=== PATIENT | male | born 1965 | race Caucasian/White ===

== ENCOUNTER 2021-01-17 22:14 | Emergency (ER) | payer MEDICAID ==
[~2021-01-17] VITALS: Ht 180.3 cm; Wt 81.6 kg
--- NOTE | 2021-01-17 22:15 | NUR ---
PATIENT BIBS FOR VOLUNTARY PSYCH ADMISSION, WITH SUICIDAL, STATES HE WANTS TO "JUMP OFF BRIDGE" BUT DENIES HOMICIDAL IDEATION. PT IS AAO X 4, IN NO SIGN OF ACUTE DISTRESS, BREATHING EVEN AND UNLABORED. PATIENT HERE FOR MEDICAL CLEARANCE.
[2021-01-17 23:06] LABS: BASOPHILS # (AUTO) 0.1 K/uL (0.0-0.2); EOSINOPHILS % (AUTO) 0.1 % (0.0-6.0); HEMOGLOBIN 17.5 g/dL (13.5-17.5); LYMPHOCYTES % (AUTO) 14.6 % (20.0-44.0); MONOCYTES # (AUTO) 1.4 K/uL (0.1-1.30); RED BLOOD CELL COUNT(AUTO) 5.44 MIL/uL (4.5-6.0)
[2021-01-17 23:09] LABS: BASOPHILS % (AUTO) 0.8 % (0.0-2.0); HEMATOCRIT 51 % (39-51); LYMPHOCYTES # (AUTO) 1.8 K/uL (0.8-4.8); MEAN CORPUSCULAR HGB CONC 34 g/dl (31.0-36.0); MEAN CORPUSCULAR VOLUME 94 fL (80-96); MONOCYTES % (AUTO) 11.5 % (2.0-12.0); NEUTROPHILS # (AUTO) 9.1 K/uL (1.8-8.9); PLATELET COUNT (AUTO) 189 K/uL (150-450); WHITE BLOOD COUNT (AUTO) 12.5 K/uL (4.3-11.0)
[2021-01-17 23:14] LABS: CALCIUM, SERUM 8.6 mg/dL (8.5-10.1); POTASSIUM 3.4 mmol/L (3.5-5.1)
--- NOTE | 2021-01-17 23:14 | NUR ---
CALLED CHRISTOPHER FARRELL (FATHER) [phone], NOTIFIED OF PT VISIT
[2021-01-17 23:20] LABS: ALBUMIN 3.8 g/dL (3.4-5.0); BILIRUBIN,DIRECT 0.3 mg/dL (0.0-0.2); TOTAL PROTEIN, SERUM 8.1 g/dL (6.4-8.2)
[2021-01-18 00:48] LABS: BILIRUBIN,URINE Negative (NEGATIVE); COLOR,URINE YELLOW (YELLOW); LEUKOCYTE ESTERASE ,URINE Negative (NEGATIVE); NITRITE, URINE Negative (NEGATIVE); PROTEIN,URINE Negative (NEGATIVE); UGLUCOSE Negative (NEGATIVE); UROBILINOGEN,URINE 0.2 EU/dL (0.2)
[2021-01-18 01:07] LABS: BACTERIA,URINE None seen /HPF (None Seen); MUCUS,URINE Few /LPF (None Seen); SQUAMOUS EPITHELIAL CELL,UR Few /HPF (None Seen); WBC,URINE 0-2 /HPF (0-3)
--- NOTE | 2021-01-18 05:03 | NUR ---
PT NO LONGER WISHES TO STAY IN ER. DENIES SI/HI. DR EVANS AWARE. PT LEFT ER .
[2021-01-18 06:07] VITALS: BP 151/85
== END 2021-01-18 06:08 | disposition home or self-care (01) ==
LOC: ER 22:16
DX: R45.851 Suicidal ideations (principal); F19.10 Other psychoactive substance abuse, uncomplicated; F10.129 Alcohol abuse with intoxication, unspecified; Y90.7 Blood alcohol level of 200-239 mg/100 ml; Z20.822 Contact with and (suspected) exposure to COVID-19
CPT/HCPCS: 36415; 80048; 80076; 80143; 80307; 80320; 81001; 85025; 87426; 99285; C9803; G0480

== ENCOUNTER 2021-01-22 11:06 | Inpatient (IN) | payer MEDICAID ==
[~2021-01-22] VITALS: Ht 180.3 cm; Wt 96.2 kg
[2021-01-22] MEDS ORDERED: IV NS 0.9% 1,000 ML BAG IV ONE ×2 (11:30→13:30)
[2021-01-22 11:48] LABS: BASOPHILS % (AUTO) 0.2 % (0.0-2.0); EOSINOPHILS % (AUTO) 0.1 % (0.0-6.0); HEMATOCRIT 48 % (39-51); HEMOGLOBIN 16.3 g/dL (13.5-17.5); LYMPHOCYTES # (AUTO) 0.6 K/uL (0.8-4.8); MEAN CORPUSCULAR HGB CONC 34 g/dl (31.0-36.0); MEAN CORPUSCULAR VOLUME 95 fL (80-96); MONOCYTES # (AUTO) 1.5 K/uL (0.1-1.30); MONOCYTES % (AUTO) 10.8 % (2.0-12.0); NEUTROPHILS # (AUTO) 12.2 K/uL (1.8-8.9); NEUTROPHILS % (AUTO) 84.9 % (43.0-81.0); PLATELET COUNT (AUTO) 159 K/uL (150-450); RED BLOOD CELL COUNT(AUTO) 5.08 MIL/uL (4.5-6.0); WHITE BLOOD COUNT (AUTO) 14.4 K/uL (4.3-11.0)
--- NOTE | 2021-01-22 11:50 | NUR ---
ETOH WITHDRAWAL, 1/2 BOTTLE OF VODKA THIS AM PER PT. PT AAOX3, RR EVEN & UNLABORED. DENIES CP, SOB, N/V AT THIS TIME. PT SEEN & EVAL'D BY DR. BRAY. PLACED ON DIRECTOR GLOBAL STRATEGIC PUBLISHER SALES, ST. WILL CONT TO MONITOR.
[2021-01-22] MEDS ORDERED: CHLORDIAZEPOXIDE HCL 25 MG CAPSULE ONE (11:55)
[2021-01-22 11:59] LABS: CALCIUM, SERUM 8.8 mg/dL (8.5-10.1); CARBON DIOXIDE 17 mmol/L (21-32); CHLORIDE 104 mmol/L (98-107); CREATININE 0.9 mg/dL (0.6-1.3); GLUCOSE 130 mg/dL (74-106); POTASSIUM 3.2 mmol/L (3.5-5.1); SODIUM SERUM 142 mmol/L (136-145); UREA NITROGEN, BLOOD 16 mg/dL (7-18)
[2021-01-22] MEDS ORDERED: CHLORDIAZEPOXIDE HCL 25 MG CAPSULE PO ONE (12:00)
[2021-01-22 12:21] LABS: ALANINE AMINOTRANSFERASE 63 U/L (12-78); ALBUMIN 3.2 g/dL (3.4-5.0); ALCOHOL, BLOOD 32 mg/dL (0-0); ALKALINE PHOSPHATASE 98 U/L (46-116); BILIRUBIN,DIRECT 0.6 mg/dL (0.0-0.2); BILIRUBIN,TOTAL 1.8 mg/dL (0.2-1.0); TOTAL PROTEIN, SERUM 7.6 g/dL (6.4-8.2)
[2021-01-22 12:23] LABS: ACETAMINOPHEN 0 ug/ml (10-30)
[2021-01-22 12:35] LABS: ASPARTATE AMINOTRANSFERASE 38 U/L (15-37)
[2021-01-22] MEDS ORDERED: LORAZEPAM INJ 2 MG/ML VIAL IV ONE (13:30)
--- NOTE | 2021-01-22 13:32 | NUR ---
MOVE SHEET SUBMITTED AND CALLED FOR TELE BED.
--- NOTE | 2021-01-22 14:12 | NUR ---
PT ACCEPTED TO TELE BED 105
[2021-01-22] MEDS ORDERED: LORAZEPAM INJ 2 MG/ML VIAL ONE (14:16)
[2021-01-22] MEDS ORDERED: ACETAMINOPHEN 325 MG TABLET PO PRN (14:30)
[2021-01-22] MEDS ORDERED: MAGNESIUM HYDROXIDE 30 ML UDC PO PRN (14:30)
[2021-01-22] MEDS ORDERED: Z GUARD REMEDY 2 OZ OINT TP PRN (14:30)
[2021-01-22] MEDS: IV NS 0.9% 1,000 ML IV SCH (14:30)
[2021-01-22] MEDS ORDERED: ONDANSETRON HCL/PF 4 MG/2 ML VIAL IVP PRN (14:30)
[2021-01-22] MEDS ORDERED: POTASSIUM CHLORIDE 20 MEQ TAB.PRT.SR PO ONE ×2 (14:30→14:38)
[2021-01-22] MEDS ORDERED: MAG HYDROX/AL HYDROX/SIMETH 30 ML UDC PO PRN (14:30)
--- NOTE | 2021-01-22 15:00 | NUR ---
report given to Mg LLAMAS for leo.
--- NOTE | 2021-01-22 15:07 | NUR ---
covid swab collected and sent to lab.
--- NOTE | 2021-01-22 15:22 | NUR ---
wheeled patient via gurney accompanied by RN and emt in no distress. RN assigned to patient at bedside to assume care.
--- NOTE | 2021-01-22 15:30 | NUR ---
RN NOTES PT RECEIVED FROM ER BY DEVYN. PT STABLE. PT TRANSFERRED FROM BED TO [facility] TO BED AMBULATING WITHOUT ASSIST. BODY CHECK DONE. SKIN INTACT. PT PUT ON TELE MONITOR NO COMPLAINTS OF PAIN AT THIS TIME. ADMIT PT TO TELE UNIT. BED WHEELS LOCKED. PT WEIGHED. SAFETY MEASURES PLACED. CALL LIGHT WITHIN REACH. WILL CONTINUE WITH ADMISSION
[2021-01-22 16:00] VITALS: BP 136/79
[2021-01-22] MEDS: LORAZEPAM INJ 2 MG/ML VIAL IV PRN ×2 (17:02→23:07)
--- NOTE | 2021-01-22 18:41 | NUR ---
RN CLOSING NOTES PT IS IN ROOM STABLE.. ON RA UNLABORE BREATHING. PT ON TELE WITH HR 103 TACHY RHYTHM, PT IS HOMELESS AN A/O X4. PT IS AMBLE TO AMBULATE/ BPR. SKIN INTACT. PT DOES NOT WANT HIS ABDOMEN AREA ASSESSED. COVID PCR PENDING.
--- NOTE | 2021-01-22 19:26 | NUR ---
RN NOTE PATIENT RESTING IN BED, ALERT AND ORIENTED X4, ABLE TO MAKE NEEDS KNOWN. ON ROOM AIR, RESPIRATIONS EVEN AND UNLABORED. DENIES ANY PAIN OR DISCOMFORT AT THIS TIME. IV ACCESS RIGHT AC #20 PATENT AND INTACT RUNNING IV NS @ 100ML/HR, NO S/SX OF INFILTRATION. BED LOCKED AND IN LOWEST POSITION. ALL SAFETY MEASURES IN PLACE. CALL LIGHT WITHIN REACH. ALL NEEDS ANTICIPATED.
[2021-01-22 20:00] VITALS: BP 104/52
[2021-01-23] VITALS: BP 105/70
[2021-01-23] MEDS: IV NS 0.9% 1,000 ML IV SCH ×3 (01:07→20:37)
[2021-01-23 04:00] VITALS: BP 113/69
[2021-01-23 06:11] LABS: BASOPHILS % (AUTO) 0.5 % (0.0-2.0); EOSINOPHILS % (AUTO) 0.7 % (0.0-6.0); HEMATOCRIT 42 % (39-51); HEMOGLOBIN 14.1 g/dL (13.5-17.5); LYMPHOCYTES # (AUTO) 1.1 K/uL (0.8-4.8); LYMPHOCYTES % (AUTO) 15.7 % (20.0-44.0); MEAN CORPUSCULAR HGB CONC 34 g/dl (31.0-36.0); MEAN CORPUSCULAR VOLUME 95 fL (80-96); MONOCYTES % (AUTO) 13.9 % (2.0-12.0); NEUTROPHILS # (AUTO) 4.8 K/uL (1.8-8.9); NEUTROPHILS % (AUTO) 69.2 % (43.0-81.0); PLATELET COUNT (AUTO) 134 K/uL (150-450); RED BLOOD CELL COUNT(AUTO) 4.39 MIL/uL (4.5-6.0); WHITE BLOOD COUNT (AUTO) 6.9 K/uL (4.3-11.0)
[2021-01-23 06:21] LABS: CREATININE 0.7 mg/dL (0.6-1.3); POTASSIUM 3.3 mmol/L (3.5-5.1)
--- NOTE | 2021-01-23 06:57 | NUR ---
RN NOTE PATIENT ALERT AND ORIENTED X4. ON ROOM AIR, O2 SAT 96%. DENIES ANY PAIN OR DISCOMFORT AT THIS TIME. IV ACCESS RIGHT AC #20 PATENT AND INTACT RUNNING IV NS @ 100ML/HR, NO S/SX OF INFILTRATION. ALL NEEDS ATENDED PROMPTLY. BED LOCKED AND IN LOWEST POSITION. ALL SAFETY MEASURES IN PLACE. CALL LIGHT WITHIN REACH. WILL ENDORSE TO AM SHIFT.
--- NOTE | 2021-01-23 07:30 | NUR ---
HOUSE ADMIN AM NOTE PATIENT IN BED, ASLEEP, RESPONDS TO NAME AND TOUCH, ALERT AND ORIENTED X4, ABLE TO MAKE NEEDS KNOWN. O2 SAT AT 96% ON ROOM AIR, RESPIRATIONS EVEN AND UNLABORED. SINUS RHYTHM HR 82 ON MONITOR, DENIES ANY PAIN OR DISCOMFORT AT THIS TIME. IV ACCESS RIGHT AC #20 WITH NS @ 100ML/HR INFUSING WELL, SITE CLEAR. NO SKIN ISSUES. PATIENT REFUSED TO CHANGE INTO HOSPITAL GOWN NOR REMOVED HIS SHOES, UNABLE TO DO FULL BODY ASSESSMENT. BED LOCKED AND IN LOWEST POSITION. ALL SAFETY MEASURES IN PLACE. CALL LIGHT WITHIN REACH. ALL NEEDS ANTICIPATED. WILL CONTINUE TO MONITOR.
[2021-01-23 08:00] VITALS: BP 101/59
[2021-01-23] MEDS: PANTOPRAZOLE 40 MG TABLET.DR PO SCH (08:14)
[2021-01-23] MEDS: MULTIVITAMINS,THERAGRAN 1 UDTAB TABLET PO SCH (09:01)
[2021-01-23] MEDS: THIAMINE HCL 100 MG TABLET PO SCH (09:01)
[2021-01-23] MEDS: FOLIC ACID 1 MG TABLET PO SCH (09:01)
[2021-01-23] MEDS: POTASSIUM PHOSPHATE MM 7.5 MMOL in IV NS 0.9% 100 ML IV SCH ×2 (09:02→11:48)
--- NOTE | 2021-01-23 09:30 | NUR ---
RN NOTES DUE MEDS GIVEN
[2021-01-23] MEDS ORDERED: CHLORDIAZEPOXIDE HCL 10 MG CAPSULE PO SCH (11:00)
[2021-01-23 12:00] VITALS: BP 131/74
[2021-01-23] MEDS: LORAZEPAM INJ 2 MG/ML VIAL IV PRN ×2 (14:32→14:58)
--- NOTE | 2021-01-23 14:34 | NUR ---
RN NOTES INFORMED [facility], PHARMACY REGARDING ATIVAN ADMINISTERED EARLIER AT 0900 SCANNED BUT DID NOT GOT SAVED.
[2021-01-23 16:00] VITALS: BP 127/73
[2021-01-23] MEDS: CHLORDIAZEPOXIDE HCL 5 MG CAPSULE PO SCH (16:27)
[2021-01-23] MEDS: QUETIAPINE FUMARATE 25 MG TABLET PO SCH (16:27)
--- NOTE | 2021-01-23 19:02 | NUR ---
RN CLOSING NOTES PT IS IN ROOM STABLE.. ON RA UNLABORED BREATHING. PT ON TELE WITH HR 90 SINUS RHYTHM, PT IS HOMELESS AN A/O X4. PT IS ABLE TO AMBULATE/ BPR. SKIN INTACT. REFUSE TO CHANGE TO HOSPITAL GOWN. ALL NEEDS MET AT THIS TIME. WILL ENDORSE TO NEXT SHIFT FOR VICKI.
--- NOTE | 2021-01-23 19:10 | NUR ---
RN NOTE RECEIVED PATIENT IN BED RESTING ALERT ORIENTED X3 VERBALLY RESPONSIVE ON ROOM AIR O2:98% IV SITE IS ON RIGHT HAND INTACT PATENT ON IV HYDRATION NS 0.9% 100CC/HR AMBULATORY IN CONTINET BOWEL/BLADDER,SAFETY MEASURE IMPLEMENT CALL LIGHT WITHIN REACH,BED IN LOW POSITION AND LOCKED CONTINUE TO MONITOR.
[2021-01-23 20:00] VITALS: BP 116/83
[2021-01-23] MEDS: MIRTAZAPINE 15 MG TABLET PO SCH (21:05)
[2021-01-24] VITALS (7 sets, daily range): BP systolic 99–132; BP diastolic 61–80
[2021-01-24] MEDS: LORAZEPAM INJ 2 MG/ML VIAL IV PRN ×3 (04:17→20:35)
[2021-01-24] MEDS: IV NS 0.9% 1,000 ML IV SCH ×2 (06:15→15:34)
--- NOTE | 2021-01-24 07:00 | NUR ---
RN NOTE PATIENT REMAINS ON ALERT ORIENTED X3 VERBALLY RESPONSIVE ON ROOM AIR O2:98% IV SITE IS ON RIGHT HAND,RIGHT FOREARM INTACT PATENT ON IV HYDRATION NS 0.9% 100CC/HR,ALL DUE MEDS GIVEN MD ORDERED KEEP CLEAN AND DRY ALL THE TIME ALL NEEDS MET ENDORSE NEXT COMING SHIFT FOR CONTINUATION OF CARE
--- NOTE | 2021-01-24 07:30 | NUR ---
SEMICONDUCTOR WAFER INSPECTOR AM NOTE PATIENT IN BED, ASLEEP, RESPONDS TO NAME AND TOUCH, ALERT AND ORIENTED X4, ABLE TO MAKE NEEDS KNOWN. O2 SAT AT 96% ON ROOM AIR, RESPIRATIONS EVEN AND UNLABORED. SINUS RHYTHM HR 80 ON MONITOR, DENIES ANY PAIN OR DISCOMFORT AT THIS TIME. IV ACCESS RIGHT AC #20 WITH NS @ 100ML/HR INFUSING WELL, SITE CLEAR. NO SKIN ISSUES. PATIENT REFUSED TO CHANGE INTO HOSPITAL GOWN NOR REMOVED HIS SHOES, UNABLE TO DO FULL BODY ASSESSMENT. BED LOCKED AND IN LOWEST POSITION. ALL SAFETY MEASURES IN PLACE. CALL LIGHT WITHIN REACH. ALL NEEDS ANTICIPATED. WILL CONTINUE TO MONITOR.
--- NOTE | 2021-01-24 07:40 | NUR ---
RN NOTES DC TELEMETRY PER DR. VERA
[2021-01-24] MEDS: PANTOPRAZOLE 40 MG TABLET.DR PO SCH (08:07)
[2021-01-24] MEDS: FOLIC ACID 1 MG TABLET PO SCH (08:22)
[2021-01-24] MEDS: CHLORDIAZEPOXIDE HCL 5 MG CAPSULE PO SCH ×2 (08:22→16:05)
[2021-01-24] MEDS: THIAMINE HCL 100 MG TABLET PO SCH (08:22)
[2021-01-24] MEDS: QUETIAPINE FUMARATE 25 MG TABLET PO SCH ×2 (08:22→16:05)
[2021-01-24] MEDS: MULTIVITAMINS,THERAGRAN 1 UDTAB TABLET PO SCH (08:22)
[2021-01-24 09:11] LABS: BASOPHILS % (AUTO) 0.6 % (0.0-2.0); EOSINOPHILS % (AUTO) 1.2 % (0.0-6.0); HEMATOCRIT 40 % (39-51); HEMOGLOBIN 13.9 g/dL (13.5-17.5); LYMPHOCYTES # (AUTO) 1.3 K/uL (0.8-4.8); LYMPHOCYTES % (AUTO) 22.8 % (20.0-44.0); MEAN CORPUSCULAR HGB CONC 34 g/dl (31.0-36.0); MEAN CORPUSCULAR VOLUME 95 fL (80-96); MONOCYTES # (AUTO) 0.9 K/uL (0.1-1.30); MONOCYTES % (AUTO) 15.2 % (2.0-12.0); NEUTROPHILS # (AUTO) 3.4 K/uL (1.8-8.9); NEUTROPHILS % (AUTO) 60.2 % (43.0-81.0); PLATELET COUNT (AUTO) 140 K/uL (150-450); RED BLOOD CELL COUNT(AUTO) 4.25 MIL/uL (4.5-6.0); WHITE BLOOD COUNT (AUTO) 5.7 K/uL (4.3-11.0)
[2021-01-24 09:26] LABS: ALBUMIN 2.3 g/dL (3.4-5.0); BILIRUBIN,DIRECT 0.3 mg/dL (0.0-0.2); BILIRUBIN,TOTAL 0.8 mg/dL (0.2-1.0); CREATININE 0.6 mg/dL (0.6-1.3); PHOSPHORUS 2.7 mg/dL (2.5-4.9); POTASSIUM 3.2 mmol/L (3.5-5.1); TOTAL PROTEIN, SERUM 5.3 g/dL (6.4-8.2)
--- NOTE | 2021-01-24 09:30 | NUR ---
RN NOTES DUE MEDS GIVEN
[2021-01-24 11:14] LABS: LYMPHOCYTES % (MANUAL) 20 % (16-48); MONOCYTES % (MANUAL) 15 % (0-11.0); NEUTROPHILS % (MANUAL) 65 (42-76)
--- NOTE | 2021-01-24 14:30 | NUR ---
SS consult SS consult requested for homelessness. Pt is a 55-year-old, male. SW met with pt at his bedside in the med-surg unit. Pt was alert and oriented x4. Pt's behavior was cooperative. Pt presented with an anxious mood and flat affect. Pt appeared appropriately dressed and groomed. Per chart, pt presented to the hospital on 01/22/21 for ETOH withdrawal. Pt stated that he is currently homeless and has been homeless for the last 2 weeks. Pt has some support from his parents, mother, Emi [[phone]] and father, Chester [[phone]]. Pt stated that his parents provide the pt with some extra clothing or some money if needed. Pt has been living on the [address]. Pt stated that he is ambulatory. Pt receives [employer] as a source of income. Pt reported that he has a hx of alcohol abuse and stated that his last alcohol use was on 01/22/21/. Pt reported daily alcohol use and stated he drinks "1.75 L a day." Pt reported no hx of mental illness. Pt reported no current SI/HI. Pt stated that he was having intermittent SI prior to admission. SW asked pt if he would consider voluntary psychiatric admission for his intermittent SI, and pt declined. SW offered the pt substance use, mental health and homeless resources. Pt accepted the resources and thanked ESTIVEN. Pt signed the homeless waiver and SW filed the waiver in the pt's chart. ESTIVEN discussed D/C plans with the pt. Pt plans to return to his prior living arrangement on the street or locate a treatment center for alcohol use. SW will f/u and fax clinicals for possible treatment center placement. PLAN: Pt plans to be D/C back to prior living arrangement on the street or to a treatment center for alcohol use, if accepted. SW will fax referral to treatment center and continue to remain available as needed. RESOURCES: Year-round shelters: [facility] [address] [place] [address] ; [facility] [address] [place] [address]; [facility] [id number] [facility]. [facility] [address] SPA 4 | [facility] Provider: [facility] Serve Address: [address] [place] [address], [address] # of Beds: 48 Population Served: [facility] Provider: First to Serve Address: [address] [facility], [address] # of Beds: 73 Population Served: [facility] SPA 6 | [facility] Provider: [facility] Last Address: [address] [facility], [address] # of Beds: 63 Population Served: [facility] 3 | [facility] Provider: [facility] [place] Address: [address] [facility], [address] # of Beds: 75 Population Served: [facility] 8 | [facility] Provider: [facility] [place] Address: [address] [facility] [address] # of Beds: 80 Population Served: [facility] 1 | [facility] Provider: [facility] [place] Address: [address] [place] [address], [address] # of Beds: 85 Population Served: [facility] | [facility] Provider: [facility] Address: Confidential (please call for location) # of Beds: 52 Population Served: [facility] 4 | [facility] Provider: [facility] Address: [address] [facility], [address] # of Beds: 49 Population Served: [facility] Provider: First To Serve Address: [address] [facility], [address] # of Beds: 27 Population Served: [facility] Hygiene: [facility]: [address] [address] ; [facility] [address] [facility] ; [facility] [address] . Food Resources: [place] [facility] at [facility]- [address]. [place]; Meet Each Need with [facility] ([facility]) [address] [place]; [facility] [address] [facility]; [facility] [address] [place] [address]. Mental Health resources provided: [facility] [address] [place], [place] [id number] ; [facility] [address] [facility] [address], [place], [place] [id number] ; [facility] [address] [facility] [place], [place] [phone] ; [facility] [address] [place], [place] [address] Healthcare Clinics: [facility] [address] [facility], [address] [place]. [place] ; [facility] [address] [facility] [address] [place] [address]; [facility] [address] [facility]. [place] [phone] Counseling--Outpatient [facility] [address] [facility], [address] [place], [place] [address] (Specializes in in-depth psychotherapy for emotional distress: anxiety, depression, interpersonal conflicts, life transitions, childhood abuse) PSYCHIATRIC OUTPATIENT SERVICES [facility] Partial Hospitalization and Intensive Outpatient Program (Managed Care and [place] Only) [address] [facility] [address] [facility] Partial Hospitalization and Outpatient Program [address] [place], [place] [id number] [facility] [place] Partial Hospitalization and Outpatient Program [address] [place], [place] [phone] [facility] [address] [facility]. [address] [place], [place] [address] [facility] Partial Hospitalization and Outpatient Program [address] [facility] [place], [place] [phone]
--- NOTE | 2021-01-24 14:50 | NUR ---
SS note SW faxed clinicals to [facility] [[address] [place] [address]; ph: [phone] fax: [phone]], for review. Pt requested treatment center placement. SS will continue to f/u. PLAN: Pt plans to D/C to his prior living arrangement on the [facility] for alcohol use, if accepted.
--- NOTE | 2021-01-24 19:30 | NUR ---
RN NOTE RECEIVED PT AWAKE, AOX3. NOT IN ANY DISTRESS, ON ROOM AIR. DENIES ANY SOB OR PAIN AT THIS TIME. PT ON IVFLUIDS NS AT 100ML/HR. NO SIGNS OF INFILTRATION NOTED. ALL SAFETY MEASURES IN PLACE. WILL CONTINUE TO MONITOR.
--- NOTE | 2021-01-24 19:53 | NUR ---
RN NOTE PT GOING TO RM 309. REPORT GIVEN TO
--- NOTE | 2021-01-24 20:53 | NUR ---
OPENING NOTES RECEIVED PT AWAKE, AOX3. NOT IN ANY DISTRESS, ON ROOM AIR. DENIES ANY SOB OR PAIN AT THIS TIME. PT ON IV FLUIDS NS AT 100ML/HR. NO SIGNS OF INFILTRATION NOTED. ALL SAFETY MEASURES IN PLACE. WILL CONTINUE TO MONITOR. Addendum: 01/24/21 at 2121 by AUDREY ARCE RN PT DOES NOT WANT TO BE CONNECTED TO IV FLUIDS AT THIS TIME.
--- NOTE | 2021-01-24 21:00 | NUR ---
RN NOTES PT REQUESTED ATIVAN ATIVAN GIVEN WILL CONTINUE TO MONITOR.
[2021-01-24] MEDS: MIRTAZAPINE 15 MG TABLET PO SCH (21:18)
--- NOTE | 2021-01-24 21:24 | NUR ---
RN NOTES PTS K IS 3.2 REPORTED TO PAPERBOARD BOXES ESTIMATOR DOCTOR AWAITING FOR RESPONSE. WILL CONTINUE TO MONITOR.
[2021-01-24] MEDS ORDERED: POTASSIUM CHLORIDE 20 MEQ TAB.PRT.SR PO ONE (22:00)
[2021-01-25] MEDS: IV NS 0.9% 1,000 ML IV SCH ×2 (02:30→12:45)
--- NOTE | 2021-01-25 06:43 | NUR ---
RN CLOSING NOTES PT AWAKE, AOX3. NOT IN ANY DISTRESS, ON ROOM AIR. DENIES ANY SOB OR PAIN AT THIS TIME. ALL SAFETY MEASURES IN PLACE. WILL ENDORSE CARE TO DAY SHIFT NURSE.
[2021-01-25 06:53] LABS: BASOPHILS % (AUTO) 0.5 % (0.0-2.0); EOSINOPHILS % (AUTO) 1.3 % (0.0-6.0); HEMATOCRIT 40 % (39-51); LYMPHOCYTES # (AUTO) 1.2 K/uL (0.8-4.8); MEAN CORPUSCULAR HGB CONC 35 g/dl (31.0-36.0); MEAN CORPUSCULAR VOLUME 95 fL (80-96); MONOCYTES # (AUTO) 0.9 K/uL (0.1-1.30); MONOCYTES % (AUTO) 15.8 % (2.0-12.0); NEUTROPHILS # (AUTO) 3.6 K/uL (1.8-8.9); NEUTROPHILS % (AUTO) 61.4 % (43.0-81.0); PLATELET COUNT (AUTO) 163 K/uL (150-450); RED BLOOD CELL COUNT(AUTO) 4.19 MIL/uL (4.5-6.0); WHITE BLOOD COUNT (AUTO) 5.9 K/uL (4.3-11.0)
[2021-01-25 07:15] LABS: CALCIUM, SERUM 8.4 mg/dL (8.5-10.1); CREATININE 0.6 mg/dL (0.6-1.3); POTASSIUM 3.3 mmol/L (3.5-5.1)
[2021-01-25] MEDS ORDERED: POTASSIUM CHLORIDE 20 MEQ TAB.PRT.SR PO ONE (07:30)
[2021-01-25] MEDS: LORAZEPAM INJ 2 MG/ML VIAL IV PRN ×3 (07:43→20:36)
[2021-01-25] MEDS: PANTOPRAZOLE 40 MG TABLET.DR PO SCH (07:44)
--- NOTE | 2021-01-25 07:51 | NUR ---
MS RN OPENING NOTES RECEIVED PT AWAKE IN BED IN NO ACUTE SIGNS FO DISTRESS. HOB ELEVATED. A/0 X3-4. ABLE TO MAKE NEEDS KNOWN, HANDS WERE LITTLE SHAKY, DR HERMAN ON UNIT AND AWARE, PRN ATIVAN 1MG IVP ADMINISTERED ORDERED. ON ROOM AIR, TOLERATING WELL WITH NO SOB NOTED. IV ACCESS ON RIGHT FA 22G AND RIGHT HAND 20G BOTH INTACT AND PATENT. SAFETY MEASURES IN PLACED: CALL LIGHT WITHIN REACH. BED ON LOWEST AND LOCKED POSITION WITH SIDE RAILS UP X2. WILL CONTINUE TO MONITOR PT ACCORDINGLY.
[2021-01-25 08:00] VITALS: BP 132/86
[2021-01-25] MEDS: CHLORDIAZEPOXIDE HCL 5 MG CAPSULE PO SCH ×2 (08:07→16:28)
[2021-01-25] MEDS: FOLIC ACID 1 MG TABLET PO SCH (08:08)
[2021-01-25] MEDS: MULTIVITAMINS,THERAGRAN 1 UDTAB TABLET PO SCH (08:08)
[2021-01-25] MEDS: THIAMINE HCL 100 MG TABLET PO SCH (08:08)
[2021-01-25] MEDS: QUETIAPINE FUMARATE 25 MG TABLET PO SCH ×2 (08:08→16:29)
--- NOTE | 2021-01-25 14:35 | NUR ---
RN NOTES PT REPORTED THAT HE'S A BIT ANXIOUS AND SHAKY. HE REQUESTED FOR MEDICATION TO CALM HIM DOWN. PRN ATIVAN 1MG IVP ADMINISTERED AT 1433. WILL CONTINUE TO MONITOR AND REASSESS PT.
[2021-01-25 16:00] VITALS: BP 138/85
--- NOTE | 2021-01-25 18:34 | NUR ---
MS RN CLOSING NOTES PT IN BED WATCHING TV AT THIS TIME. A/0 X3-4. ABLE TO MAKE NEEDS KNOWN. ON ROOM AIR, TOLERATING WELL WITH NO SOB NOTED DURING THE DAY. IV ACCESS ON RIGHT FA #22G AND RIGHT HAND #20G BOTH INTACT AND PATENT, IVF OF NS @ 100ML/HR INFUSING TO RFA, NO S/S OF INFILTRATION AT SITE NOTED. ALL NEEDS AND CARE ATTENDED WELL. SAFETY MEASURES IN PLACE: CALL LIGHT WITHIN REACH. BED ON LOWEST AND LOCKED POSITION WITH SIDE RAILS UP X2. WILL ENDORSE VICKI TO CARDIAC MONITOR TECHNICIAN NURSE.
--- NOTE | 2021-01-25 19:46 | NUR ---
MS RN OPENING NOTES RECEIVED PT IN BED, AWAKE, WATCHING TV. PT IS A/Ox3-4. PT IS ON ROOM AIR AND TOLERATING WELL. NO SOB NOTED. NO S/SX OF RESPIRATORY DISTRESS NOTED. IV ACCESS IS IN R HAND #20 AND R FA #22. BOTH IVs PATENT, INTACT, AND FLUSHING WELL WITH NS RUNNING @ 100 ML/HR ON RFA. SAFETY MEASURES IN PLACE: BED IN LOWEST, LOCKED POSITION, BRAKES ON, SIDERAILS UPx2. CALL LIGHT AND TABLE WITHIN REACH. WILL CONTINUE TO MONITOR.
[2021-01-25 20:00] VITALS: BP 122/67
--- NOTE | 2021-01-25 20:36 | NUR ---
ADMINISTERED ATIVAN, PER MD ORDER. VITAL SIGNS STABLE.
[2021-01-25] MEDS: MIRTAZAPINE 15 MG TABLET PO SCH (21:32)
[2021-01-26] MEDS: IV NS 0.9% 1,000 ML IV SCH ×2 (00:31→08:12)
--- NOTE | 2021-01-26 06:31 | NUR ---
MS RN CLOSING NOTES PT IN BED SLEEPING, EASY TO AWAKEN VIA VERBAL STIMULI. PT IS A/Ox3-4. PT IS ON ROOM AIR AND TOLERATING WELL. NO SOB NOTED. NO S/SX OF RESPIRATORY DISTRESS NOTED. IV ACCESS IS IN R HAND #20 AND R FA #22. BOTH IVs PATENT, INTACT, AND FLUSHING WELL WITH NS RUNNING @ 100 ML/HR ON RFA. ALL NEEDS MET. PT KEPT CLEAN AND DRY. SAFETY MEASURES IN PLACE: BED IN LOWEST, LOCKED POSITION, BRAKES ON, SIDERAILS UPx2. CALL LIGHT AND TABLE WITHIN REACH. WILL ENDORSE TO ONCOMING SHIFT.
[2021-01-26 06:36] LABS: BASOPHILS % (AUTO) 0.4 % (0.0-2.0); CALCIUM, SERUM 8.4 mg/dL (8.5-10.1); CREATININE 0.6 mg/dL (0.6-1.3); EOSINOPHILS % (AUTO) 1.1 % (0.0-6.0); HEMATOCRIT 40 % (39-51); HEMOGLOBIN 13.8 g/dL (13.5-17.5); LYMPHOCYTES # (AUTO) 1.3 K/uL (0.8-4.8); LYMPHOCYTES % (AUTO) 17.6 % (20.0-44.0); MEAN CORPUSCULAR HGB CONC 35 g/dl (31.0-36.0); MEAN CORPUSCULAR VOLUME 95 fL (80-96); MONOCYTES % (AUTO) 13.2 % (2.0-12.0); NEUTROPHILS # (AUTO) 4.9 K/uL (1.8-8.9); NEUTROPHILS % (AUTO) 67.7 % (43.0-81.0); PLATELET COUNT (AUTO) 175 K/uL (150-450); POTASSIUM 3.2 mmol/L (3.5-5.1); RED BLOOD CELL COUNT(AUTO) 4.18 MIL/uL (4.5-6.0); WHITE BLOOD COUNT (AUTO) 7.2 K/uL (4.3-11.0)
--- NOTE | 2021-01-26 07:25 | NUR ---
MS RN OPENING NOTES RECEIVED PT ASLEEP IN BED, EASILY AROUSABLE. PT IS A/0 X 4. ABLE TO MAKE NEEDS KNOWN, DENIES PAIN OR ANY DISCOMFORTS AT THIS TIME. ON ROOM AIR, TOLERATING WELL WITH NO SOB NOTED. IV ACCESS ON RIGHT FA #22G AND RIGHT HAND #20G BOTH INTACT AND PATENT,IVF OF NS @100ML/HR INFUSING WELL. SAFETY MEASURES IN PLACE: CALL LIGHT WITHIN REACH. BED ON LOWEST AND LOCKED POSITION WITH SIDE RAILS UP X2. WILL CONTINUE TO MONITOR PT ACCORDINGLY.
[2021-01-26] MEDS ORDERED: Thiamine HCL PO (07:26)
[2021-01-26] MEDS ORDERED: QUET25TA PO (07:26)
[2021-01-26] MEDS ORDERED: Chlordiazepoxide Hcl PO (07:26)
[2021-01-26] MEDS ORDERED: MULT-24 PO (07:26)
[2021-01-26] MEDS ORDERED: MIRT-121 PO (07:26)
[2021-01-26] MEDS ORDERED: Folic Acid PO (07:26)
[2021-01-26 08:00] VITALS: BP 117/71
[2021-01-26] MEDS ORDERED: POTASSIUM CHLORIDE 20 MEQ TAB.PRT.SR PO ONE (08:00)
[2021-01-26] MEDS: CHLORDIAZEPOXIDE HCL 5 MG CAPSULE PO SCH (08:11)
[2021-01-26] MEDS: PANTOPRAZOLE 40 MG TABLET.DR PO SCH (08:11)
[2021-01-26] MEDS: QUETIAPINE FUMARATE 25 MG TABLET PO SCH (08:11)
[2021-01-26] MEDS: FOLIC ACID 1 MG TABLET PO SCH (08:11)
[2021-01-26] MEDS: MULTIVITAMINS,THERAGRAN 1 UDTAB TABLET PO SCH (08:11)
[2021-01-26] MEDS: THIAMINE HCL 100 MG TABLET PO SCH (08:11)
[2021-01-26] MEDS: LORAZEPAM INJ 2 MG/ML VIAL IV PRN (08:12)
--- NOTE | 2021-01-26 08:15 | NUR ---
RN NOTES PT VERBALIZED THAT HE'S ANXIOUS AND SHAKY. HE REQUESTED FOR HIS ATIVAN. PRN ATIVAN 1MG IVP ADMINISTERED AT 0812. WILL CONTINUE TO MONITOR PT
--- NOTE | 2021-01-26 11:07 | NUR ---
RN DISCHARGED NOTES PT DISCHARGED IN STABLE CONDITION TO [facility] IN [place]. PT IS A/O X4. ABLE TO MAKE NEEDS KNOW, DENIES SI/HI. V/S TAKEN, STABLE AND RECORDED. ALL BELONGINGS ACCOUNTED FOR AND SIGNED FORM. IV ACCESS ON RIGHT AND AND RFA BOTH REMOVED WITH NO ACTIVE BLEEDING NOTED, DRY DRESSING APPLIED TO SITES. NAME ARMBAND REMOVED. HEALTH TEACHINGS/DISCHARGED INSTRUCTIONS GIVEN TO PT AND VERBALIZED UNDERSTANDING. PT LEFT UNIT @ 1045 AND ASSISTED TO LOBBY WITH STAFF FROM [facility] NAMED [facility] WAITING AT THE LOBBY AND WILL TAKE PT TO THE RE[facility]AB CENTER. CHARGE NURSE AWARE OF DISCHARGE.
== END 2021-01-26 10:45 | DRG 775 ==
LOC: ER 11:14 → TELE1 14:19 → MEDSG1 01-24 07:49 → MED 01-24 20:13
PROVIDERS: ADMIT Internal Medicine; ATTEND Family Medicine
DX: F10.139 Alcohol abuse with withdrawal, unspecified (principal); E43 Unspecified severe protein-calorie malnutrition; F33.2 Major depressive disorder, recurrent severe without psychotic features; E87.2 Acidosis; R45.851 Suicidal ideations; K70.10 Alcoholic hepatitis without ascites; E88.09 Other disorders of plasma-protein metabolism, not elsewhere classified; E86.1 Hypovolemia; E87.1 Hypo-osmolality and hyponatremia; Y90.1 Blood alcohol level of 20-39 mg/100 ml; E87.6 Hypokalemia; Z59.0 Homelessness; Z20.822 Contact with and (suspected) exposure to COVID-19
CPT/HCPCS: 36415; 80048-TC; 80061-TC; 80076-TC; 83605-TC; 84100-TC; 85025-TC; 87081-TC; G0378; G0480; J2060; J3490; J7030; J7042; U0003

== ENCOUNTER 2022-10-01 12:36 | Emergency (ER) | payer MEDICARE, OTHER ==
[~2022-10-01] VITALS: Ht 180.3 cm; Wt 101.2 kg
[~2022-10-01 12:36] MED LIST: Chlordiazepoxide Hcl PO; Folic Acid PO; MIRT-121 PO; MULT-24 PO; QUET25TA PO; Thiamine HCL PO
--- NOTE | 2022-10-01 12:46 | NUR ---
C/O BILATERAL TESTICULAR PAIN AND RASH X 1 MONTH. PT DENIES TRAUMA
[2022-10-01 12:47] VITALS: BP 151/104
--- NOTE | 2022-10-01 13:00 | NUR ---
PT TOLD DR NARAYAN THAT HE IS SUICIDAL AND WANTS VOLUNTARY ADMISSION TO PSYCH FACILTY
--- NOTE | 2022-10-01 13:24 | NUR ---
URINE COLLECTED AND SENT
[2022-10-01] MEDS: CLOTRIMAZOLE 1% 15 GM TUBE TP SCH ×2 (13:30→17:00)
[2022-10-01 13:34] LABS: BASOPHILS # (AUTO) 0.1 K/uL (0.0-0.2); BASOPHILS % (AUTO) 0.8 % (0.0-2.0); HEMATOCRIT 47 % (39-51); HEMOGLOBIN 15.2 g/dL (13.5-17.5); LYMPHOCYTES # (AUTO) 1.7 K/uL (0.8-4.8); LYMPHOCYTES % (AUTO) 15.5 % (20.0-44.0); MEAN CORPUSCULAR HGB CONC 33 g/dl (31.0-36.0); MEAN CORPUSCULAR VOLUME 98 fL (80-96); MONOCYTES # (AUTO) 0.9 K/uL (0.1-1.30); MONOCYTES % (AUTO) 8.2 % (2.0-12.0); NEUTROPHILS # (AUTO) 8.4 K/uL (1.8-8.9); NEUTROPHILS % (AUTO) 74.5 % (43.0-81.0); PLATELET COUNT (AUTO) 211 K/uL (150-450); RED BLOOD CELL COUNT(AUTO) 4.77 MIL/uL (4.5-6.0); WHITE BLOOD COUNT (AUTO) 11.3 K/uL (4.3-11.0)
[2022-10-01 13:40] LABS: CALCIUM, SERUM 10.6 mg/dL (8.5-10.1); CARBON DIOXIDE 23 mmol/L (21-32); CHLORIDE 102 mmol/L (98-107); CREATININE 0.9 mg/dL (0.6-1.3); GLUCOSE 116 mg/dL (74-106); POTASSIUM 3.5 mmol/L (3.5-5.1); SODIUM SERUM 141 mmol/L (136-145); UREA NITROGEN, BLOOD 9 mg/dL (7-18)
[2022-10-01 13:42] LABS: BILIRUBIN,URINE NEGATIVE (NEGATIVE); COLOR,URINE YELLOW (YELLOW); LEUKOCYTE ESTERASE ,URINE NEGATIVE (NEGATIVE); NITRITE, URINE NEGATIVE (NEGATIVE); PROTEIN,URINE NEGATIVE (NEGATIVE); UGLUCOSE NEGATIVE (NEGATIVE); UROBILINOGEN,URINE 0.2 EU/dL (0.2)
[2022-10-01 13:46] LABS: ALANINE AMINOTRANSFERASE 61 U/L (12-78); ALCOHOL, BLOOD 253 mg/dL (0-0); ALKALINE PHOSPHATASE 116 U/L (46-116); ASPARTATE AMINOTRANSFERASE 92 U/L (15-37); BILIRUBIN,DIRECT 0.3 mg/dL (0.0-0.2); TOTAL PROTEIN, SERUM 8.5 g/dL (6.4-8.2)
[2022-10-01 14:18] LABS: BACTERIA,URINE None seen /HPF (None Seen); RBC,URINE 0-2 /HPF (0-2); WBC,URINE NONE SEEN /HPF (0-3)
[2022-10-01 14:19] LABS: SQUAMOUS EPITHELIAL CELL,UR None Seen /HPF (None Seen)
--- NOTE | 2022-10-01 14:31 | NUR ---
LOTRIMIN 1% CREAM GIVEN AT BED SIDE , INSTRUCTION PROVIDED
--- NOTE | 2022-10-01 19:12 | NUR ---
FAXED CLINICALS TO [facility].
--- NOTE | 2022-10-01 22:13 | NUR ---
ACCEPTED AT [facility] UNDER CARE OF DR GOODE. [facility] ETA: 90 MIN
--- NOTE | 2022-10-01 22:21 | NUR ---
[facility] TRANSPORT RESCHEDULED FOR MIDNIGHT PER [facility] FOR CHANGE OF SHIFT.
[2022-10-01] MEDS ORDERED: ONDANSETRON 4 MG TAB.RAPDIS ONE (23:56)
[2022-10-02] MEDS ORDERED: ONDANSETRON HCL 4 MG/5 ML SOLUTION PO ONE
--- NOTE | 2022-10-02 00:11 | NUR ---
[facility] GIVEN REPORT AT BEDSIDE, TO GOING TO [facility]. VSS, NAD
== END 2022-10-02 00:25 ==
LOC: ER 12:43
DX: R45.851 Suicidal ideations (principal); B35.6 Tinea cruris; Z60.2 Problems related to living alone; Z79.899 Other long term (current) drug therapy; Z20.822 Contact with and (suspected) exposure to COVID-19
CPT/HCPCS: 99285; 85025; 80048; 80076; 81001; 36415; 87426; 80143; 80320 ×2; 80307; Q0162; C9803; G0480

== ENCOUNTER 2022-10-20 13:46 | Emergency (ER) | payer MEDICARE, OTHER ==
[~2022-10-20] VITALS: Ht 180.3 cm; Wt 95.3 kg
--- NOTE | 2022-10-20 14:03 | NUR ---
SWAB FOR COVID19 SENT TO LAB
--- NOTE | 2022-10-20 14:05 | NUR ---
BIBS REQUESTING VOLUNTARY PSYCH ADMISSION [facility]. +SI PLAN: DRINK MYSELF TO . PLACED IN ROOM18, GOWNED AND WANDED- COOPERATIVE, WILL CONTINUE TO OBSERVED AND MONITOR.
[2022-10-20 14:29] LABS: BASOPHILS # (AUTO) 0.2 K/uL (0.0-0.2); BASOPHILS % (AUTO) 2.5 % (0.0-2.0); EOSINOPHILS % (AUTO) 1.2 % (0.0-6.0); HEMATOCRIT 46 % (39-51); HEMOGLOBIN 14.8 g/dL (13.5-17.5); LYMPHOCYTES # (AUTO) 1.1 K/uL (0.8-4.8); MEAN CORPUSCULAR HGB CONC 33 g/dl (31.0-36.0); MEAN CORPUSCULAR VOLUME 98 fL (80-96); MONOCYTES # (AUTO) 0.6 K/uL (0.1-1.30); NEUTROPHILS # (AUTO) 6.2 K/uL (1.8-8.9); NEUTROPHILS % (AUTO) 76.3 % (43.0-81.0); PLATELET COUNT (AUTO) 315 K/uL (150-450); RED BLOOD CELL COUNT(AUTO) 4.64 MIL/uL (4.5-6.0); WHITE BLOOD COUNT (AUTO) 8.1 K/uL (4.3-11.0)
--- NOTE | 2022-10-20 14:30 | NUR ---
GROUND CREWMAN [facility] SUPPORT AT BEDSIDE
[2022-10-20 14:46] LABS: CALCIUM, SERUM 10.7 mg/dL (8.5-10.1); CARBON DIOXIDE 23 mmol/L (21-32); CHLORIDE 101 mmol/L (98-107); CREATININE 0.7 mg/dL (0.6-1.3); GLUCOSE 129 mg/dL (74-106); SODIUM SERUM 138 mmol/L (136-145); UREA NITROGEN, BLOOD 7 mg/dL (7-18)
--- NOTE | 2022-10-20 14:56 | NUR ---
URINE COLLECTED AND SENT TO THE LAB
[2022-10-20 15:00] LABS: ALANINE AMINOTRANSFERASE 43 U/L (12-78); ALBUMIN 3.6 g/dL (3.4-5.0); ALCOHOL, BLOOD 84 mg/dL (0-10); ALKALINE PHOSPHATASE 112 U/L (46-116); ASPARTATE AMINOTRANSFERASE 36 U/L (15-37); BILIRUBIN,DIRECT 0.1 mg/dL (0.0-0.2); BILIRUBIN,TOTAL 0.4 mg/dL (0.2-1.0); TOTAL PROTEIN, SERUM 8.2 g/dL (6.4-8.2)
[2022-10-20 15:30] LABS: BILIRUBIN,URINE NEGATIVE (NEGATIVE); COLOR,URINE YELLOW (YELLOW); LEUKOCYTE ESTERASE ,URINE NEGATIVE (NEGATIVE); NITRITE, URINE NEGATIVE (NEGATIVE); PROTEIN,URINE NEGATIVE (NEGATIVE); UGLUCOSE NEGATIVE (NEGATIVE); UROBILINOGEN,URINE 0.2 EU/dL (0.2)
--- NOTE | 2022-10-20 16:01 | NUR ---
FAXED CLINICALS TO [facility]
--- NOTE | 2022-10-20 16:16 | NUR ---
PT ACCEPTED TO [facility]
--- NOTE | 2022-10-20 16:22 | NUR ---
PATIENT ACCEPTED IN [facility] UNDER DR. DUMAS. FOR REPORT [phone] EXT. 108. ETA TIME IN 30MINS.
--- NOTE | 2022-10-20 16:33 | NUR ---
REPORT GIVEN TO [facility] FOR VICKI
--- NOTE | 2022-10-20 17:10 | NUR ---
PT PICKED UP BY [facility] WITH ALL HIS BELONGINGS. AMBULATORY WITH STEADY GAIT, BREATHING EVEN AND UNLABORED. PT IS NOT IN ACUTE DISTRESS.
[2022-10-20 17:13] VITALS: BP 116/77
== END 2022-10-20 17:14 ==
LOC: ER 13:55
DX: R45.851 Suicidal ideations (principal); F10.129 Alcohol abuse with intoxication, unspecified; Z79.899 Other long term (current) drug therapy; Z20.822 Contact with and (suspected) exposure to COVID-19; Y90.4 Blood alcohol level of 80-99 mg/100 ml
CPT/HCPCS: 36415; 80048-TC; 80076-TC; 85025-TC; C9803; G0480

== ENCOUNTER 2022-11-06 13:41 | Emergency (ER) | payer MEDICARE, OTHER ==
[~2022-11-06] VITALS: Ht 177.8 cm; Wt 113.4 kg
--- NOTE | 2022-11-06 13:58 | NUR ---
PT TO ER BED 15 C/O CHEST PAIN DESCRIBING IT SHARP THATS BEEN GOING ON FOR THE PAST 5 DAYS. PT ADMITS TO ALCOHOL ABUSE, DRINKS DAILY. PT AWAKE, VERBALLY RESPONSIVE. DENIES ANY OTHER COMPLAINS/ AWAITNG MD PURVIS.
--- NOTE | 2022-11-06 14:12 | NUR ---
DR NICOLAS AT BEDSIDE FOR EVAL.
[2022-11-06] MEDS ORDERED: IBUPROFEN 600 MG TABLET PO ONE (14:30)
[2022-11-06 14:33] LABS: BASOPHILS # (AUTO) 0.1 K/uL (0.0-0.2); EOSINOPHILS % (AUTO) 2.1 % (0.0-6.0); HEMATOCRIT 40 % (39-51); HEMOGLOBIN 13.3 g/dL (13.5-17.5); LYMPHOCYTES # (AUTO) 2.2 K/uL (0.8-4.8); LYMPHOCYTES % (AUTO) 26.9 % (20.0-44.0); MEAN CORPUSCULAR HGB CONC 33 g/dl (31.0-36.0); MEAN CORPUSCULAR VOLUME 96 fL (80-96); MONOCYTES # (AUTO) 0.5 K/uL (0.1-1.30); MONOCYTES % (AUTO) 6.5 % (2.0-12.0); NEUTROPHILS # (AUTO) 5.1 K/uL (1.8-8.9); NEUTROPHILS % (AUTO) 63.5 % (43.0-81.0); PLATELET COUNT (AUTO) 445 K/uL (150-450); RED BLOOD CELL COUNT(AUTO) 4.19 MIL/uL (4.5-6.0)
[2022-11-06] MEDS ORDERED: IBUPROFEN 600 MG TABLET ONE (14:37)
[2022-11-06 14:46] LABS: CALCIUM, SERUM 9.4 mg/dL (8.5-10.1); CARBON DIOXIDE 25 mmol/L (21-32); CHLORIDE 104 mmol/L (98-107); CREATININE 0.7 mg/dL (0.6-1.3); GLUCOSE 127 mg/dL (74-106); POTASSIUM 3.5 mmol/L (3.5-5.1); SODIUM SERUM 141 mmol/L (136-145); UREA NITROGEN, BLOOD 5 mg/dL (7-18)
[2022-11-06 14:57] LABS: ALANINE AMINOTRANSFERASE 24 U/L (12-78); ALBUMIN 2.9 g/dL (3.4-5.0); ALKALINE PHOSPHATASE 107 U/L (46-116); ASPARTATE AMINOTRANSFERASE 16 U/L (15-37); BILIRUBIN,DIRECT 0.1 mg/dL (0.0-0.2); BILIRUBIN,TOTAL 0.2 mg/dL (0.2-1.0); TOTAL PROTEIN, SERUM 7.3 g/dL (6.4-8.2)
[2022-11-06 15:53] VITALS: BP 145/104; TEMP 98
--- NOTE | 2022-11-06 15:53 | NUR ---
Patient discharged to home in stable condition. Written and verbal after care instructions given. Patient verbalizes understanding of instruction.
== END 2022-11-06 15:54 | disposition home or self-care (01) ==
LOC: ER 13:53
DX: R07.89 Other chest pain (principal); F32.A Depression, unspecified; Z60.2 Problems related to living alone; Z79.899 Other long term (current) drug therapy
CPT/HCPCS: 36415; 71045-TC; 80048-TC; 80076-TC; 83880; 84484-TC; 85025-TC

== ENCOUNTER 2023-09-22 07:37 | Emergency (ER) | payer MEDICARE, OTHER ==
[~2023-09-22] VITALS: Ht 180.3 cm; Wt 78.9 kg
[2023-09-22] MEDS ORDERED: ASPIRIN 325 MG TABLET ONE (07:56)
[2023-09-22] MEDS: ASPIRIN 325 MG TABLET PO ONE (08:00)
[2023-09-22 08:13] LABS: BASOPHILS # (AUTO) 0.1 K/uL (0.0-0.2); EOSINOPHILS # (AUTO) 0.1 K/uL (0.0-0.7); EOSINOPHILS % (AUTO) 1.3 % (0.0-6.0); HEMATOCRIT 43 % (39-51); HEMOGLOBIN 14.6 g/dL (13.5-17.5); LYMPHOCYTES # (AUTO) 1.9 K/uL (0.8-4.8); LYMPHOCYTES % (AUTO) 16.9 % (20.0-44.0); MEAN CORPUSCULAR HEMOGLOBIN 30 PG (26.0-33.0); MEAN CORPUSCULAR HGB CONC 34 g/dl (31.0-36.0); MEAN CORPUSCULAR VOLUME 88 fL (80-96); NEUTROPHILS # (AUTO) 7.9 K/uL (1.8-8.9); NEUTROPHILS % (AUTO) 71.8 % (43.0-81.0); PLATELET COUNT (AUTO) 347 K/uL (150-450); RED BLOOD CELL COUNT(AUTO) 4.89 MIL/uL (4.5-6.0); RED CELL DISTRIBUTION WIDTH 15.8 % (11.5-15.0)
[2023-09-22] MEDS ORDERED: LORAZEPAM 1 MG TABLET ONE (08:18)
[2023-09-22] MEDS: LORAZEPAM 1 MG TABLET PO ONE (08:19)
[2023-09-22] MEDS ORDERED: ONDANSETRON HCL/PF 4 MG/2 ML VIAL ONE (08:25)
[2023-09-22] MEDS: ONDANSETRON HCL/PF - ER 4 MG/2 ML VIAL IV ONE (08:26)
[2023-09-22 08:38] LABS: CALCIUM, SERUM 9.2 mg/dL (8.5-10.1); CARBON DIOXIDE 23 mmol/L (21-32); CHLORIDE 104 mmol/L (98-107); CREATININE 0.7 mg/dL (0.6-1.3); GLUCOSE 102 mg/dL (74-106); POTASSIUM 3.8 mmol/L (3.5-5.1); SODIUM SERUM 137 mmol/L (136-145); UREA NITROGEN, BLOOD 11 mg/dL (7-18)
[2023-09-22 08:45] LABS: ALANINE AMINOTRANSFERASE 13 U/L (12-78); ALBUMIN 3.5 g/dL (3.4-5.0); ALKALINE PHOSPHATASE 103 U/L (46-116); ASPARTATE AMINOTRANSFERASE 9 U/L (15-37); BILIRUBIN,DIRECT 0.3 mg/dL (0.0-0.2); BILIRUBIN,TOTAL 1.3 mg/dL (0.2-1.0); TOTAL PROTEIN, SERUM 7.3 g/dL (6.4-8.2)
[2023-09-22 09:12] LABS: AMPHETAMINE, URINE NEGATIVE (NEGATIVE); BARBITURATE, URINE NEGATIVE (NEGATIVE); BENZODIAZEPINE, URINE NEGATIVE (NEGATIVE); CANNABINOID, URINE NEGATIVE (NEGATIVE); COCCAINE, URINE NEGATIVE (NEGATIVE); PHENCYCLIDINE SCREEN,URINE NEGATIVE (NEGATIVE)
[2023-09-22 09:14] LABS: OPIATE, URINE POSITIVE (NEGATIVE)
[2023-09-22] MEDS ORDERED: HYDROCODONE/APAP 5/325MG TABLET ONE (10:41)
[2023-09-22] MEDS: HYDROCODONE/APAP 5/325MG TABLET PO ONE (10:43)
[2023-09-22] MEDS ORDERED: IBUPROFEN 600 MG TABLET ONE (11:37)
[2023-09-22] MEDS: IBUPROFEN 600 MG TABLET PO ONE (11:40)
[2023-09-22 11:55] VITALS: BP 122/86; TEMP 98.4; O2SAT 99
== END 2023-09-22 11:57 | disposition home or self-care (01) ==
LOC: ER 07:37
DX: R07.89 Other chest pain (principal); G89.29 Other chronic pain; M54.9 Dorsalgia, unspecified; F32.A Depression, unspecified; Z60.2 Problems related to living alone; F10.10 Alcohol abuse, uncomplicated; Y90.9 Presence of alcohol in blood, level not specified
CPT/HCPCS: 99285; 96374; 93005; 71045; 85025; 80048; 80076; 36415; 84484 ×2; 80320; 80307; J2405 ×2; G0480